=== PATIENT | male | born 1950 | race Caucasian/White ===

== ENCOUNTER → 2020-04-30 | Outpatient (CLI) | payer MEDICARE, OTHER ==
[2020-05-06 13:07] LABS: ANTI THROMBIN 3 ANTIGEN IMMUNO 95 % (72-124); ANTINUCLEAR ANTIBODIES DIRECT Negative (Negative); PROTEIN C FUNCTIONAL ACTIVITY 142 % (73-180); PROTEIN S FUNCTIONAL ACTIVITY 114 % (63-140)
[2020-05-07 10:19] LABS: DRVV SCREEN 92.5 SEC
[2020-05-07 10:36] LABS: PTT LUPUS TYPE ANTICOAG SCREEN 2.2 (0-1.2)
[2020-05-07 10:46] LABS: DRVV CONFIRM 73.3 SEC; LUPUS CONFIRM RATIO 1.8
[2020-05-07 10:58] LABS: NORMALIZED RATIO 1.22 (0.00-1.20)
[2020-05-10 13:12] LABS: HEXAGONAL PHASE PHOSPHOLIPID 3 sec (0-11)
== END ==
LOC: M LAB 12:27
PROVIDERS: ATTEND Physician Assistant
DX: I82.501 Chronic embolism and thrombosis of unspecified deep veins of right lower extremity (principal)

== ENCOUNTER → 2020-08-19 | Outpatient (CLI) | payer MEDICARE, OTHER ==
--- NOTE | 2020-08-19 09:26 | REP ---
INDICATION: HX OF VENOUS THROMBOSIS AND EMBOLISM COMPARISON: None. TECHNIQUE: Real time compression and duplex Doppler interrogation of the bilateral lower extremity deep venous system is performed. FINDINGS: Bilaterally, the common femoral and superficial femoral veins are fully compressible with transducer pressure and demonstrate normal spontaneous and phasic flow, without evidence of deep venous thrombosis. There is also no thrombus in the left popliteal vein. There is a linear echogenic structure in the right popliteal vein with incomplete compressibility of the vein, compatible with old nonocclusive thrombus at that location. IMPRESSION: Old nonocclusive thrombus right popliteal vein, otherwise no evidence of deep venous thrombosis of the bilateral lower extremity femoral popliteal venous system. <Electronically signed by Charlie Gann > 08/19/20 [id number]
== END ==
LOC: M RAD 08:38
PROVIDERS: ATTEND Surgery Vascular Surgery
DX: Z86.718 Personal history of other venous thrombosis and embolism (principal)

== ENCOUNTER 2024-01-19 09:12 | Day surgery (SDC) | payer MEDICARE, OTHER ==
[~2024-01-19] VITALS: Ht 190.5 cm; Wt 81.6 kg
[~2024-01-19 09:12] MED LIST: AMLO2.5T3 PO; ATOR1TAB21 PO; ECOT81TA5 PO; FENO145T7 PO; HYDR12.55 PO; JANU100T PO; LISI2.5T9 PO; METF500T13 PO; MIDAZOLAM INJ 2MG/2ML VIAL As Ordered ONE; OMEP40CA5 PO; PHENYLEPHRINE 10% OPHTH SOL 5ML OD PRN; SYNT50TA PO; TAMS1CAP17 PO; fentaNYL 100 MCG/2 ML INJECTION As Ordered ONE
[2024-01-19] MEDS: OFLOXACIN 0.3 % (OCUFLOX) OPTH SOL 5ML OD ONE (09:40)
[2024-01-19] MEDS: PHENYLEPHRINE 2.5% OPHTH SOL 2ML OD SCH (09:53)
[2024-01-19] MEDS: LIDOCAINE 3.5 % 1ML OPHTH TOPICAL GEL OU ONE (09:53)
[2024-01-19] MEDS: TROPICAMIDE 1% OPHTH SOLN 15ML OD SCH (09:53)
[2024-01-19] MEDS: ATROPINE SULFATE 1% OPHTH SOLN 2ML BTL OD SCH (09:53)
[2024-01-19] MEDS ORDERED: GLYCOPYRROLATE INJ 0.2 MG/ML 2 ML VIAL As Ordered ONE (10:09)
[2024-01-19] MEDS: LIDOCAINE 1% SDV 5ML VIAL As Ordered ONE (10:10)
[2024-01-19] MEDS: BSS IRRIG/VANCO(10MG)/TOBRA(5MG)/EPINEPH(1:1000-0.5CC)500ML BAG-ORONLY As Ordered ONE (10:10)
[2024-01-19] MEDS: CEFUROXIME 1MG/0.1ML INTRACAMERAL INJ As Ordered ONE (10:11)
[2024-01-19 10:31] VITALS: BP 170/77; TEMP 96.6; O2SAT 98
== END 2024-01-19 10:48 | disposition home or self-care (01) ==
LOC: M SDC 09:12
PROVIDERS: ATTEND Ophthalmology
DX: E11.36 Type 2 diabetes mellitus with diabetic cataract (principal); H25.11 Age-related nuclear cataract, right eye; I10 Essential (primary) hypertension; I25.2 Old myocardial infarction; E78.00 Pure hypercholesterolemia, unspecified; Z79.899 Other long term (current) drug therapy; Z79.890 Hormone replacement therapy; E03.9 Hypothyroidism, unspecified; Z79.84 Long term (current) use of oral hypoglycemic drugs; Z87.891 Personal history of nicotine dependence; Z95.5 Presence of coronary angioplasty implant and graft; Z88.8 Allergy status to other drugs, medicaments and biological substances
CPT/HCPCS: 66984; 92015; J0697; J2250; J3010; V2788